=== PATIENT | male | born 1985 | race Caucasian/White ===

== ENCOUNTER 2016-10-09 11:43 | Emergency (ER) | payer OTHER ==
[2016-10-09 12:11] VITALS: BP 157/89
--- NOTE | 2016-10-09 12:31 | UC ---
Throat Pain/Nasal Reynaldo HPI - HPI Summary HPI Summary: pt preesnts with c/o nasal congestion, sinus pressure and pain, PND, Sore throat , X7 days and discharge from right eye that he has noticed is yellow/green discharge from right eye that has worsened over the last 3 days. Woke this morning with right eye "glued" shut - History of Current Complaint Chief Complaint: UCEye Stated Complaint: FEVER HEADACHE CONGESTION Time Seen by Provider: 10/09/16 12:03 Hx Obtained From: Patient Onset/Duration: Gradual Onset, Lasting Days Severity: Mild Associated Signs & Symptoms: Positive: Dysphagia, Sinus Discomfort, Fever - since - Allergies/Home Medications Allergies/Adverse Reactions: Allergies Allergy/AdvReac Type Severity Reaction Status Date / Time No Known Allergies Allergy Verified 10/09/16 12:11 Home Medications: Home Medications Dextromethorphan-Phenylephrine [Sudafed PE Preesure+Pain+ 10-5-325 mg] 2 tab PO PRN 10/09/16 [History] PMH/Surg Hx/FS Hx/Imm Hx Previously Healthy: Yes Cardiovascular History Of: Reports: Hypertension Denies: Pacemaker/ICD - Surgical History Surgical History: None - Family History Known Family History: Positive: Hypertension, Diabetes - Social History Lives: With Family Alcohol Use: None Substance Use Type: None Smoking Status (MU): Never Smoked Tobacco Review of Systems Constitutional: Fever, Fatigue Skin: Negative Eyes: Drainage - yellow/green ENT: Sore Throat, Nasal Discharge Respiratory: Negative Cardiovascular: Negative Gastrointestinal: Negative Genitourinary: Negative Motor: Negative Neurovascular: Negative Musculoskeletal: Negative Neurological: Negative Psychological: Negative All Other Systems Reviewed And Are Negative: Yes Physical Exam Triage Information Reviewed: Yes Appearance: Well-Appearing Vital Signs: Initial Vital Signs Temp 97.3 F 10/09/16 12:07 Pulse 89 10/09/16 12:07 Resp 16 10/09/16 12:07 BP 157/89 10/09/16 12:07 Pulse Ox 95 10/09/16 12:07 Eye Exam: Other Eyes: Positive: Conjunctiva Inflamed, Discharge - green ENT Exam: Other ENT: Positive: Pharyngeal erythema, Nasal congestion, Tonsillar swelling, Other : - maxillary sinus tenderness Neck exam: Normal Respiratory Exam: Normal Cardiovascular Exam: Normal Abdominal Exam: Normal Musculoskeletal Exam: Normal Neurological Exam: Normal Psychological Exam: Normal Skin Exam: Normal Throat Pain/Nasal Course/Dx - Differential Dx/Diagnosis Differential Diagnosis/HQI/PQRI: Influenza, Sinusitis, URI, Other - conjunctivitis Provider Diagnoses: sinusitis. conjunctivitis Discharge - Discharge Plan Condition: Stable Disposition: HOME Prescriptions: Amoxicillin (*) 875 mg PO BID #10 tab Polymyx/Trimethoprim OPTH* [Polytrim OPHTH*] 2 drop BOTH EYES Q3H #1 btl Patient Education Materials: Sinusitis (ED), Conjunctivitis (ED) Referrals: Jenaro Angelo MD [Primary Care Provider] -
== END 2016-10-09 12:28 | disposition home or self-care (01) ==
LOC: UCEAST 11:43
DX: J32.9 Chronic sinusitis, unspecified (principal); H10.31 Unspecified acute conjunctivitis, right eye
CPT/HCPCS: 99212; G0463

== ENCOUNTER 2016-12-12 09:25 | Emergency (ER) | payer MEDICAID, OTHER ==
[2016-12-12 11:16] VITALS: BP 136/84
--- NOTE | 2016-12-12 12:03 | UC ---
FLU HPI - HPI Summary HPI Summary: TWO DAYS OF COUGH FEVER BODY ACHES CHILLS ; SON HAD POSITIVE FLU A WEEK AGO. ALSO RAN OUT OF ACID REFLUX MEDICATION. - History of Current Complaint Chief Complaint: UCRespiratory Stated Complaint: COUGH Time Seen by Provider: 12/12/16 11:11 Hx Obtained From: Patient, Family/Slot Ambassador Onset/Duration: Sudden Onset, Lasting Days, Still Present Severity Currently: Moderate Severity Initially: Moderate Pain Intensity: 0 Pain Scale Used: 0-10 Numeric Associated Signs & Symptoms: Positive: Fever, F/C, Myalgia, Cough, Nasal Congestion Related Hx: Possible Flu/Infectious Exposure - Risk Factors Influenza Risk Factors: Negative - Allergy/Home Medications Allergies/Adverse Reactions: Allergies Allergy/AdvReac Type Severity Reaction Status Date / Time No Known Allergies Allergy Verified 10/09/16 12:11 Home Medications: Home Medications Gabapentin CAP(*) [Neurontin 100 mg CAP(*)] 100 mg PO DAILY 12/12/16 [History Confirmed 12/12/16] PMH/Surg Hx/FS Hx/Imm Hx Previously Healthy: Yes Cardiovascular History Of: Reports: Hypertension Denies: Pacemaker/ICD - Surgical History Surgical History: None - Family History Known Family History: Positive: None, Hypertension, Diabetes - Social History Occupation: Employed Full-time Lives: With Family Alcohol Use: None Substance Use Type: None Smoking Status (MU): Never Smoked Tobacco Review of Systems Constitutional: Fever, Chills, Fatigue Skin: Negative Eyes: Negative ENT: Nasal Discharge Respiratory: Cough Cardiovascular: Negative Gastrointestinal: Negative Genitourinary: Negative Motor: Negative Neurovascular: Negative Musculoskeletal: Myalgia Neurological: Negative Psychological: Negative All Other Systems Reviewed And Are Negative: Yes Physical Exam Triage Information Reviewed: Yes Appearance: Well-Appearing, No Pain Distress, Well-Nourished Vital Signs: Initial Vital Signs Temp 98.4 F 12/12/16 11:11 Pulse 108 12/12/16 11:11 Resp 20 12/12/16 11:11 BP 136/84 12/12/16 11:11 Pulse Ox 96 12/12/16 11:11 Eye Exam: Normal Eyes: Positive: Conjunctiva Clear ENT Exam: Normal ENT: Positive: Normal ENT inspection, Hearing grossly normal, Pharynx normal, TMs normal Dental Exam: Normal Neck exam: Normal Neck: Positive: Supple, Nontender, No Lymphadenopathy Respiratory Exam: Normal Respiratory: Positive: Chest non-tender, Lungs clear, Normal breath sounds, No respiratory distress, No accessory muscle use Cardiovascular Exam: Normal Cardiovascular: Positive: RRR, No Murmur, Pulses Normal Abdominal Exam: Normal Musculoskeletal Exam: Normal Musculoskeletal: Positive: Strength Intact, ROM Intact, No Edema Neurological Exam: Normal Psychological Exam: Normal Psychological: Positive: Normal Response To Family Skin Exam: Normal Flu Course/Dx - Differential Dx/Diagnosis Differential Diagnosis/HQI/PQRI: Influenza Provider Diagnoses: INFLUENZA Discharge - Discharge Plan Condition: Stable Disposition: HOME Prescriptions: Benzonatate CAP* [Tessalon 100 MG CAP*] 100 mg PO TID #15 cap Oseltamivir CAP* [Tamiflu CAP*] 75 mg PO BID #10 cap Pantoprazole TAB (NF) [Protonix TAB (NF)] 40 mg PO DAILY #14 tab Patient Education Materials: Influenza (ED), Gastroesophageal Reflux Disease ( ED) Forms: *Work Release Referrals: Jenaro Angelo MD [Primary Care Provider] -
== END 2016-12-12 11:48 | disposition home or self-care (01) ==
LOC: UCEAST 09:25
DX: J11.1 Influenza due to unidentified influenza virus with other respiratory manifestations (principal); I10 Essential (primary) hypertension
CPT/HCPCS: 87502; 99212; G0463

== ENCOUNTER → 2017-08-03 19:27 | Emergency (ER) | payer OTHER ==
[2017-08-03 19:32] VITALS: BP 127/73
--- NOTE | 2017-08-03 20:16 | UC ---
Ear Complaint HPI - HPI Summary HPI Summary: Patient presents with one day onset ear pain. He states he has not had any change in hearing, canal drainage, or bleeding. He denies fever, chills, runny nose, sore throat, chest pain, dyspnea, abdominal pain, nausea, vomiting or diarrhea. He states if felt like there was water in it after he showered today so he cleaned it with q-tip. - History of Current Complaint Chief Complaint: UCEar Stated Complaint: EAR PAIN Time Seen by Provider: 08/03/17 20:05 Onset/Duration: Sudden Onset Severity Initially: Mild Severity Currently: Moderate Associated Signs/Symptoms: Positive: Trauma to Ear - Allergies/Home Medications Allergies/Adverse Reactions: Allergies Allergy/AdvReac Type Severity Reaction Status Date / Time Ibuprofen Allergy Severe See Comment Verified 08/03/17 19:32 PMH/Surg Hx/FS Hx/Imm Hx Previously Healthy: Yes - Surgical History Surgical History: None - Family History Known Family History: Positive: None, Hypertension, Diabetes - Social History Occupation: Employed Full-time Lives: Alone Alcohol Use: None Substance Use Type: None Smoking Status (MU): Never Smoked Tobacco Review of Systems Constitutional: Negative Skin: Negative Eyes: Negative ENT: Ear Ache Respiratory: Negative Cardiovascular: Negative Gastrointestinal: Negative Genitourinary: Negative Motor: Negative Neurovascular: Negative Musculoskeletal: Negative Neurological: Negative Psychological: Negative All Other Systems Reviewed And Are Negative: Yes Physical Exam Triage Information Reviewed: Yes Vital Signs: Initial Vital Signs Temp 97.2 F 08/03/17 19:29 Pulse 91 08/03/17 19:29 Resp 16 08/03/17 19:29 BP 127/73 08/03/17 19:29 Pulse Ox 99 08/03/17 19:29 Eyes: Positive: Conjunctiva Clear ENT: Positive: Hearing grossly normal, Pharynx normal, TM bulging, TM dull, TM red, Uvula midline Dental Exam: Normal Neck exam: Normal Neck: Positive: 1 Respiratory Exam: Normal Cardiovascular Exam: Normal Abdominal Exam: Normal Musculoskeletal Exam: Normal Skin Exam: Normal Ear Complaint Course/Dx - Course Course Of Treatment: Patient presents with complaints of right ear pain, he has normal vital signs, was afebrile. His physical exam in consistent with otitis media and was RX zpk. I told him that if his symtpoms do not improve in two days to go to his or be seen by ENT. - Differential Dx/Diagnosis Differential Diagnosis/HQI/PQRI: Otitis Media Provider Diagnoses: otitis media Discharge - Discharge Plan Condition: Stable Disposition: HOME Prescriptions: Azithromycin TAB* [Zithromax TAB (Z-AJAY) 250 mg #6 tabs] 250 mg PO DAILY #6 tab Patient Education Materials: Otitis Media (ED) Referrals: Jenaro Angelo MD [Primary Care Provider] - Jean Vazquez MD [Medical Doctor] -
== END | disposition home or self-care (01) ==
LOC: UCEAST 19:27
DX: H66.91 Otitis media, unspecified, right ear (principal)
CPT/HCPCS: 99212; G0463

== ENCOUNTER 2017-08-10 15:59 | Emergency (ER) | payer OTHER ==
[2017-08-10] MEDS ORDERED: Ketorolac INJ* 60 MG/2 ML VIAL IM ONE (16:27)
[2017-08-10] MEDS ORDERED: Cyclobenzaprine TAB* 10 MG PO ONE ×2 (16:27→16:49)
[2017-08-10] MEDS ORDERED: Lidocaine PATCH 5%* 1 PATCH TRANSDERM ONE (16:28)
--- NOTE | 2017-08-10 16:29 | ED ---
Back Pain - HPI Summary HPI Summary: 31m presents with back pain for past week. 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 He has history of herniated disks. He states pain is in sharp location as normal. He is being follow up a pain specialist and was given a toradol shot which helped but after it wore off the pain came back more intense. He denies any loss of bowel or bladder or saddle anaesthesia. He admits to pain occasionally down his leg. He denies any weakness. He denies any fever. He has been using naproxen and Tylenol with codeine for pain. His pain is located in lower back. - History of Current Complaint Chief Complaint: EDBackInjuryPain Stated Complaint: BACK PIAN, Time Seen by Provider: 08/10/17 16:08 Pain Intensity: 10 - Allergies/Home Medications Allergies/Adverse Reactions: Allergies Allergy/AdvReac Type Severity Reaction Status Date / Time Ibuprofen AdvReac Mild See Comment Verified 08/09/17 10:35 PMH/Surg Hx/FS Hx/Imm Hx Endocrine/Hematology History: Denies: Other Endocrine/Hematological Disorders Cardiovascular History: Reports: Hx Hypertension Denies: Hx Pacemaker/ICD, Other Cardiovascular Problems/Disorders Respiratory History: Reports: Hx Sleep Apnea - not using CPAP Denies: Other Respiratory Problems/Disorders GI History: Reports: Hx Gastroesophageal Reflux Disease, Hx Ulcer Denies: Other GI Disorders History: Denies: Other Problems/Disorders Musculoskeletal History: Reports: Hx Arthritis, Hx Back Problems, Other Musculoskeletal History - neck pain Sensory History: Reports: Hx Contacts or Glasses Denies: Hx Hearing Aid, Other Sensory Impairments Opthamlomology History: Reports: Hx Contacts or Glasses Denies: Other Sensory Impairments Neurological History: Reports: Hx Headaches Denies: Other Neuro Impairments/Disorders Psychiatric History: Denies: Hx Panic Disorder, Other Psychiatric Issues/Disorders Infectious Disease History: No Infectious Disease History: Denies: Hx Hepatitis, Hx of Known/Suspected MRSA, History Other Infectious Disease, Traveled Outside the [place] in Last 30 Days - Family History Known Family History: Positive: None, Hypertension, Diabetes - Social History Alcohol Use: None Hx Substance Use: No Substance Use Type: Reports: None Hx Tobacco Use: No Smoking Status (MU): Never Smoked Tobacco Review of Systems Negative: Fever Negative: Chest Pain Negative: Shortness Of Breath Positive: Myalgia - back pain All Other Systems Reviewed And Are Negative: Yes Physical Exam Triage Information Reviewed: Yes Vital Signs On Initial Exam: Initial Vitals Temp Pulse Resp BP Pulse Ox 97.8 F 76 20 162/80 100 08/10/17 16:01 08/10/17 16:01 08/10/17 16:01 08/10/17 16:01 08/10/17 16:01 Vital Signs Reviewed: Yes Appearance: Positive: Well-Appearing Skin: Positive: Warm, Dry Head/Face: Positive: Normal Head/Face Inspection Eyes: Positive: Normal, Conjunctiva Clear Respiratory/Lung Sounds: Positive: Clear to Auscultation, Breath Sounds Present Cardiovascular: Positive: Normal, RRR Musculoskeletal: Positive: Strength/ROM Intact - back with pain, Other - tenderness L4-L5, neg SLR, good pulses Neurological: Positive: Sensory/Motor Intact, Reflexes Intact - patella Psychiatric: Positive: Normal - [place] Coma Scale Coma Scale Total: 15 Diagnostics - Vital Signs Vital Signs Temp Pulse Resp BP Pulse Ox 08/10/17 16:01 97.8 F 76 20 162/80 100 - Laboratory Lab Statement: Any lab studies that have been ordered have been reviewed, and results considered in the medical decision making process. Back Pain Course/Dx - Course Course Of Treatment: 31m presents with back pain for past week. 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 He has history of herniated disks. He states pain is in sharp location as normal. He is being follow up a pain specialist and was given a torodal shot which helped but after it wore off the pain came back more intense. He denies any loss of bowel or bladder or saddle anaesthesia. He admits to pain occasionally down his leg. He denies any weakness. He denies any fever. He has been using naproxen and Tylenol with codeine for pain. His pain is located in lower back. on exam has tenderness lower back. neg SLR. will treat with toradol, flexeril, and lidocaine patch. told to follow up with pain specialist. patient understand and agrees with plan. - Diagnoses Differential Diagnosis/HQI/PQRI: Positive: Herniated Disc, Strain, Sprain Provider Diagnoses: Back pain Discharge - Discharge Plan Condition: Good Disposition: HOME Prescriptions: Cyclobenzaprine TAB* [Flexeril 10 MG TAB*] 10 mg PO TID PRN #15 tab PRN Reason: Pain Lidocaine PATCH 5%* [Lidoderm 5% Patch*] 1 patch TRANSDERM DAILY #7 patch Patient Education Materials: Back Pain (ED) Referrals: Jenaro Angelo MD [Primary Care Provider] - Additional Instructions: Take muscle relaxers three times a day Apply lidocaine patches to area for up to 12 hours in one 24 hour period Use ibuprofen or Tylenol for pain every 6 hours ice/heat area, move as much as possible Follow up with primary within 5 days Return to ED if develop any new or worsening symptoms
[2017-08-10 17:03] VITALS: BP 144/74
== END 2017-08-10 17:01 | disposition home or self-care (01) ==
LOC: ED 15:59
DX: M54.9 Dorsalgia, unspecified (principal)
CPT/HCPCS: 96372; 99282; A9270-GY; J1885

== ENCOUNTER 2017-11-30 12:15 | Emergency (ER) | payer OTHER ==
--- NOTE | 2017-11-30 13:42 | RAD ---
Indication: Cough. 2 views of the chest including dual energy PA views are reviewed. Comparison is made with previous exam dated October 07, 2015. No mediastinal shift is noted. Heart is of normal size and configuration. Lung alvares demonstrate no pleural fluid, pneumonia or pneumothorax. There is poor inspiratory effort noted. IMPRESSION: No active cardiopulmonary disease is noted.
[2017-11-30] MEDS ORDERED: methylPREDNISolone 125 MG* 2 ML VIAL IV ONE (15:46)
[2017-11-30] MEDS ORDERED: Albuterol/Ipratropium NEB.SOL* Albuterol 2.5 MG/Ipratropium 0.5 MG 3 ML INH ONE (15:46)
[2017-11-30 15:50] LABS: ABS Basophils 0.1 10^3/ul (0-0.2); ABS Eosinophils 0.2 10^3/ul (0-0.6); ABS Lymphocytes 2.5 10^3/ul (1.0-4.8); ABS Neutrophils 5.5 10^3/ul (1.5-7.7); ABS Nucleated RBC 0 10^3/ul; Eosinophil % 2.5 % (0-6); Hematocrit 46 % (42-52); Hemoglobin 16.1 g/dl (14.0-18.0); Lymphocyte % 27.2 % (25-47); Mean Corpuscular HGB Conc 35 g/dl (31-36); Mean Corpuscular Hemoglobin 30 pg (27-31); Mean Corpuscular Volume 85 fL (80-94); Mean Platelet Volume 7 um3 (7.4-10.4); Nucleated Red Blood Cells % 0; Platelet Count 312 10^3/ul (150-450); Red Blood Count 5.41 10^6/ul (4.0-5.4); Red Cell Distribution Width 13 % (10.5-15); White Blood Count 9.2 10^3/ul (3.5-10.8)
[2017-11-30 16:09] LABS: EGFR Non-African American 91.4 (>60)
--- NOTE | 2017-11-30 17:02 | ED ---
HPI Chest Pain - HPI Summary HPI Summary: 32-year-old male presents with chest pain for the past couple days. He states he has been having a cough and shortness of breath. He states he has had this before when he has had a cold. He is nonsmoker. He is not diabetic. He does have a history of high blood pressure. He does not know his family history. Denies any pain or swelling in his calf muscle. He states that the chest pain feels like a pressure. He states this pain is constant. He said coughing makes it worse. He denies any nausea, vomiting or diarrhea. He denies any bowel pain. Denies a sore throat. He has no respiratory history. He doesn't know his family history. Nothing makes it better. Has tried only Tylenol. - History of Current Complaint Chief Complaint: EDChestPainROMI Time Seen by Provider: 11/30/17 15:27 Pain Intensity: 8 - Allergy/Home Medications Allergies/Adverse Reactions: Allergies Allergy/AdvReac Type Severity Reaction Status Date / Time ibuprofen AdvReac See Comment Verified 11/24/17 13:53 Home Medications: Home Medications Naproxen TAB* [Naprosyn 375 mg TAB*] 500 mg PO BID 11/30/17 [History Confirmed 11/30/17] Simvastatin TAB(NF) [Zocor(NF)] 5 mg PO DAILY 11/30/17 [History Confirmed ] PMH/Surg Hx/FS Hx/Imm Hx Endocrine/Hematology History: Denies: Hx Anticoagulant Therapy, Other Endocrine/Hematological Disorders Cardiovascular History: Reports: Hx Hypertension Denies: Hx Pacemaker/ICD, Other Cardiovascular Problems/Disorders Respiratory History: Reports: Hx Sleep Apnea - not using CPAP Denies: Hx Asthma, Hx Chronic Obstructive Pulmonary Disease (COPD), Other Respiratory Problems/Disorders GI History: Reports: Hx Gastroesophageal Reflux Disease, Hx Ulcer Denies: Other GI Disorders History: Denies: Other Problems/Disorders Musculoskeletal History: Reports: Hx Arthritis, Hx Back Problems, Other Musculoskeletal History - neck pain Sensory History: Reports: Hx Contacts or Glasses Denies: Hx Hearing Aid, Other Sensory Impairments Opthamlomology History: Reports: Hx Contacts or Glasses Denies: Other Sensory Impairments Neurological History: Reports: Hx Headaches Denies: Other Neuro Impairments/Disorders Psychiatric History: Denies: Hx Panic Disorder, Other Psychiatric Issues/Disorders Infectious Disease History: No Infectious Disease History: Denies: Hx Hepatitis, Hx of Known/Suspected MRSA, History Other Infectious Disease, Traveled Outside the [place] in Last 30 Days - Family History Known Family History: Positive: None, Hypertension, Diabetes - Social History Alcohol Use: None Hx Substance Use: No Substance Use Type: Reports: None Hx Tobacco Use: No Smoking Status (MU): Never Smoked Tobacco Review of Systems Negative: Fever Positive: Chest Pain Positive: Shortness Of Breath, Cough Negative: Abdominal Pain All Other Systems Reviewed And Are Negative: Yes Physical Exam Triage Information Reviewed: Yes Vital Signs On Initial Exam: Initial Vitals Temp Pulse Resp BP Pulse Ox 97.8 F 85 20 140/81 96 11/30/17 12:28 11/30/17 12:28 11/30/17 12:28 11/30/17 12:28 11/30/17 12:28 Vital Signs Reviewed: Yes Appearance: Positive: Well-Appearing Skin: Positive: Warm, Dry Head/Face: Positive: Normal Head/Face Inspection Eyes: Positive: Normal, EOMI, JUANJO, Conjunctiva Clear ENT: Positive: Normal ENT inspection, Pharynx normal, TMs normal Respiratory/Lung Sounds: Positive: Clear to Auscultation, Breath Sounds Present , Other - Nonreproducible chest pain Cardiovascular: Positive: Normal, RRR Abdomen Description: Positive: Nontender, Soft Bowel Sounds: Positive: Present Musculoskeletal: Positive: Normal Neurological: Positive: Normal Psychiatric: Positive: Normal Diagnostics - Vital Signs Vital Signs Temp Pulse Resp BP Pulse Ox 11/30/17 16:30 76 20 109/57 95 11/30/17 16:00 70 20 126/74 97 11/30/17 15:59 74 12 99 11/30/17 15:43 73 21 137/74 98 11/30/17 15:30 67 97 11/30/17 14:39 99.1 F 77 14 105/72 96 11/30/17 12:28 97.8 F 85 20 140/81 96 - Laboratory Lab Results: Lab Results 11/30/17 11/30/17 11/30/17 Range/Units 15:41 15:41 15:41 WBC 9.2 (3.5-10.8) 10^3/ul RBC 5.41 H (4.0-5.4) 10^6/ul Hgb 16.1 (14.0-18.0) g/dl Hct 46 (42-52) % MCV 85 (80-94) fL MCH 30 (27-31) pg MCHC 35 (31-36) g/dl RDW 13 (10.5-15) % Plt Count 312 (150-450) 10^3/ul MPV 7 L (7.4-10.4) um3 Neut % (Auto) 59.1 (38-83) % Lymph % (Auto) 27.2 (25-47) % [place] % (Auto) 10.6 H (0-7) % Eos % (Auto) 2.5 (0-6) % Baso % (Auto) 0.6 (0-2) % Absolute Neuts (auto) 5.5 (1.5-7.7) 10^3/ul Absolute Lymphs (auto) 2.5 (1.0-4.8) 10^3/ul Absolute Monos (auto) 1.0 H (0-0.8) 10^3/ul Absolute Eos (auto) 0.2 (0-0.6) 10^3/ul Absolute Basos (auto) 0.1 (0-0.2) 10^3/ul Absolute Nucleated RBC 0 10^3/ul Nucleated RBC % 0 D-Dimer, Quantitative < 200 (Less Than 230) ng/mL Sodium 137 (133-145) mmol/L Potassium 3.8 (3.5-5.0) mmol/L Chloride 104 (101-111) mmol/L Carbon Dioxide 27 (22-32) mmol/L Anion Gap 6 (2-11) mmol/L BUN 13 (6-24) mg/dL Creatinine 0.96 (0.67-1.17) mg/dL Est GFR ( Amer) 117.5 (>60) Est GFR (Non-Af Amer) 91.4 (>60) BUN/Creatinine Ratio 13.5 (8-20) Glucose 85 (70-100) mg/dL Calcium 9.6 (8.6-10.3) mg/dL Total Bilirubin 0.50 (0.2-1.0) mg/dL AST 21 (13-39) U/L ALT 24 (7-52) U/L Alkaline Phosphatase 42 (34-104) U/L Troponin I 0.00 (<0.04) ng/mL C-React Prot High Sens 5.28 mg/L Total Protein 7.4 (6.4-8.9) g/dL Albumin 4.4 (3.2-5.2) g/dL Globulin 3.0 (2-4) g/dL Albumin/Globulin Ratio 1.5 (1-3) Result Diagrams: 11/30/17 15:41 11/30/17 15:41 Lab Statement: Any lab studies that have been ordered have been reviewed, and results considered in the medical decision making process. - Radiology chest Xray Interpretation: No Acute Changes Radiology Interpretation Completed By: Radiologist - EKG No standard instances Cardiac Rate: NL EKG Rhythm: Sinus Rhythm EKG Interpretation: normal sinus rhythm Re-Evaluation - Re-Evaluation First Eval Change: Unchanged Comment: tried inhaler and pain unchanged Chest Pain Course/Dx - Course Course Of Treatment: 32-year-old male presents with chest pain for the past couple days. He states he has been having a cough and shortness of breath. He states he has had this before when he has had a cold. He is nonsmoker. He is not diabetic. He does have a history of high blood pressure. He does not know his family history. Denies any pain or swelling in his calf muscle. He states that the chest pain feels like a pressure. He states this pain is constant. He said coughing makes it worse. He denies any nausea, vomiting or diarrhea. He denies any bowel pain. Denies a sore throat. He has no respiratory history. He doesn't know his family history. Nothing makes it better. Has tried only Tylenol. On exam nonreproducible chest pain. Lungs clear to auscultation. Heart regular rate and rhythm. EKG normal. Labs within normal limits. 3. Troponins normal. Chest x-ray normal.Likely bronchitis. Will treat with cough medication inhaler and steroid. Told to follow with primary. Patient understands and agrees the plan. - Chest Pain Differential Diagnosis/HQI/PQRI: Acute VA, Chest Wall, Lower Respiratory Infection, Pulmonary Embolism - Diagnoses Provider Diagnoses: Bronchitis, Chest pain Discharge - Discharge Plan Condition: Good Disposition: HOME Patient Education Materials: Acute Bronchitis (ED) Forms: *Work Release Referrals: Jenaro Angelo MD [Primary Care Provider] - Additional Instructions: Follow up with primary within 3 days Take cough medication 5ml (1 teaspoon) every 6 hours as needed cough Use inhaler up to two puffs every 4-6 hours for cough Take steroid once a day starting tomorrow Use saline in the nose for nasal congestion, can also get Sudafed at pharmacy counter for nasal congestion Use humidifier or place warm bowls of water around the room for cough Take Tylenol or ibuprofen for pain every 6 hours Return to ED if develop any new or worsening symptoms
[2017-11-30] MEDS ORDERED: guaiFENesin/CODIEN 100MG-10MG* 5 ML UDC PO ONE (17:37)
[2017-11-30 19:53] VITALS: BP 125/58
== END 2017-11-30 19:53 | disposition home or self-care (01) ==
LOC: ED 12:15
DX: J40 Bronchitis, not specified as acute or chronic (principal); R07.9 Chest pain, unspecified; R06.02 Shortness of breath; R05 Cough
CPT/HCPCS: 36415; 71046; 80053; 84484; 85025; 85379; 86141; 93005; 94640; 96374; 99283; A9270-GY; J2930

== ENCOUNTER 2018-08-07 08:33 | Emergency (ER) | payer OTHER ==
[2018-08-07 08:41] VITALS: BP 136/83
--- NOTE | 2018-08-07 08:58 | UC ---
Respiratory Complaint HPI - HPI Summary HPI Summary: ABOUT ONE WEEK OF SINUS AND NASAL CONGESTION AND HEADACHE. VERY MILD COUGH. NO FEVER, NO NASAL DISCHARGE, NO NAUSEA/VOMITING. NO SORE THROAT OR EAR PAIN. OTC SUDAFED NOT HELPING. - History of Current Complaint Chief Complaint: UCGeneralIllness Stated Complaint: CONGESTION Time Seen by Provider: 08/07/18 08:43 Hx Obtained From: Patient Onset/Duration: Gradual Onset, Lasting Days, Still Present Timing: Constant Severity Initially: Moderate Severity Currently: Moderate Pain Intensity: 5 Pain Scale Used: 0-10 Numeric Character: Cough: Nonproductive Aggravating Factors: Nothing Alleviating Factors: Nothing Associated Signs And Symptoms: Positive: Sinus Discomfort. Negative: Dyspnea, Fever, Wheezing - Allergies/Home Medications Allergies/Adverse Reactions: Allergies Allergy/AdvReac Type Severity Reaction Status Date / Time ibuprofen AdvReac See Comment Verified 08/07/18 08:41 PMH/Surg Hx/FS Hx/Imm Hx Cardiovascular History: Hypertension Other History Of: Negative For: Anticoagulant Therapy - Surgical History Surgical History: None Surgery Procedure, Year, and Place: GERD - Family History Known Family History: Positive: Hypertension, Diabetes - Social History Alcohol Use: None Substance Use Type: None Smoking Status (MU): Never Smoked Tobacco Review of Systems All Other Systems Reviewed And Are Negative: Yes Constitutional: Negative: Fever ENT: Positive: Sinus Congestion Respiratory: Positive: Cough Cardiovascular: Positive: Negative Gastrointestinal: Positive: Negative Neurological: Positive: Headache Physical Exam Triage Information Reviewed: Yes Appearance: Well-Appearing, No Pain Distress, Well-Nourished Vital Signs: Initial Vital Signs Temp 98.2 F 08/07/18 08:37 Pulse 84 08/07/18 08:37 Resp 18 08/07/18 08:37 BP 136/83 08/07/18 08:37 Pulse Ox 96 08/07/18 08:37 Vital Signs Reviewed: Yes Eyes: Positive: Conjunctiva Clear ENT: Positive: Hearing grossly normal, Pharynx normal, Nasal congestion, TMs normal. Negative: Nasal drainage Neck: Positive: Supple, Nontender, No Lymphadenopathy Respiratory Exam: Normal Cardiovascular Exam: Normal Abdomen Description: Positive: Soft Musculoskeletal: Positive: No Edema Neurological: Positive: Alert Psychological: Positive: Age Appropriate Behavior Skin: Negative: Rashes UC Diagnostic Evaluation - Laboratory O2 Sat by Pulse Oximetry: 96 Respiratory Course/Dx - Differential Dx/Diagnosis Provider Diagnoses: SINUSITIS Discharge - Sign-Out/Discharge Documenting (check all that apply): Patient Departure All imaging exams completed and their final reports reviewed: No Studies - Discharge Plan Condition: Stable Disposition: HOME Patient Education Materials: Sinusitis (ED) Forms: *Work Release Referrals: Jenaro Angelo MD [Primary Care Provider] - If Needed Additional Instructions: YOUR SYMPTOMS ARE LIKELY VIRALLY MEDIATED AND SHOULD RESOLVE ON THEIR OWN WITH TIME. NO INDICATION FOR ANTIBIOTICS AT PRESENT. REST, HYDRATE, OTC MEDS NEEDED. SEEK FOLLOW-UP IF YOU ARE NOT IMPROVING OVER THE NEXT 1-2 WEEKS. USE OTC AFRIN FOR NASAL CONGESTION. 2 SPRAYS IN EACH NOSTRIL TWICE DAILY NEEDED. DO NOT USE FOR MORE THAN 3-4 DAYS IN A ROW TO PREVENT DEVELOPING REBOUND CONGESTION. CALL ME HERE ON MONDAY OR MONDAY 2:30PM-10PM IF YOU HAVE ANY CONCERNS. - Billing Disposition and Condition Condition: STABLE Disposition: Home
== END 2018-08-07 09:15 | disposition home or self-care (01) ==
LOC: UCEAST 08:33
DX: J32.9 Chronic sinusitis, unspecified (principal); I10 Essential (primary) hypertension; Z88.6 Allergy status to analgesic agent
CPT/HCPCS: 99211; G0463

== ENCOUNTER 2018-11-27 17:19 | Emergency (ER) | payer OTHER ==
[2018-11-27 17:43] VITALS: BP 134/100
--- NOTE | 2018-11-27 18:06 | UC ---
Back Pain HPI - HPI Summary HPI Summary: 33 yo male presents with neck and back pain. He tells me that this morning he was walking into work in the parking lot and slipped on the ice. Fell and landed on his left side. Did not hit his head or have LOC. He continued in to work and worked all day. Gradually throughout the day developed neck and low back pain. He has not taken anything OTC for his pain. Denies SOB, weakness, numbness, or tingling. No saddle anesthesia or loss of bowel/bladder control. - History of Current Complaint Chief Complaint: UCBackPain Stated Complaint: ARM AND BACK INJURY FROM A FALL Time Seen by Provider: 11/27/18 18:06 Hx Obtained From: Patient Onset/Duration: Sudden Onset Severity Initially: Moderate Severity Currently: Severe Pain Intensity: 9 Pain Scale Used: 0-10 Numeric - Allergies/Home Medications Allergies/Adverse Reactions: Allergies Allergy/AdvReac Type Severity Reaction Status Date / Time ibuprofen AdvReac See Comment Verified 11/27/18 17:43 PMH/Surg Hx/FS Hx/Imm Hx Cardiovascular History: Hypertension Other History Of: Negative For: Anticoagulant Therapy - Surgical History Surgical History: None Surgery Procedure, Year, and Place: GERD - Family History Known Family History: Positive: Hypertension, Diabetes - Social History Alcohol Use: None Substance Use Type: None Smoking Status (MU): Never Smoked Tobacco Review of Systems All Other Systems Reviewed And Are Negative: Yes Constitutional: Positive: Negative Skin: Positive: Negative Respiratory: Positive: Negative Cardiovascular: Positive: Negative Neurovascular: Positive: Negative Musculoskeletal: Positive: Other: - Neck and low back pain Neurological: Positive: Negative Psychological: Positive: Negative Physical Exam - Summary Physical Exam Summary: GENERAL: NAD. WDWN. No pain distress. SKIN: No rashes, sores, lesions, or open wounds. NECK: Supple. FROM. Nontender. No lymphadenopathy. CHEST: CTAB. No r/r/w. No accessory muscle use. Breathing comfortably and in no distress. CV: RRR. Without m/r/g. Pulses intact. Cap refill <2seconds MSK: C-Spine: Mild TTP about cervical paraspinal muscles and trapezius. FROM. Negative Spurlings. L-Spine: TTP over lumbar paraspinal muscles. Pain with flexion and extension of spine. Positive SLR b/l for low back pain without radiation. Strength 5/5 B/L LEs including dorsiflexion and plantar flexion. FROM B/L LEs. No edema. NEURO: Alert. Sensations intact B/L UEs C4-T1 and LEs L3-S1. Reflexes intact PSYCH: Age appropriate behavior. Triage Information Reviewed: Yes Vital Signs: Initial Vital Signs Temp 98.7 F 11/27/18 17:40 Pulse 94 11/27/18 17:40 Resp 16 11/27/18 17:40 BP 134/100 11/27/18 17:40 Pulse Ox 98 11/27/18 17:40 Vital Signs Reviewed: Yes Back Pain Course/Dx - Course Course Of Treatment: Cervical spine and lumbar spine: No radiologist reading after 1800, therefore wet read by myself is negative for fracture. Suspect muscle strain from fall. Advised to rest and apply heat. Continue naproxen and will rx for flexeril. F/u with PCP if symptoms do not improve. - Differential Dx/Diagnosis Provider Diagnosis: Muscle strain, Fall Discharge - Sign-Out/Discharge Documenting (check all that apply): Patient Departure All imaging exams completed and their final reports reviewed: No - Discharge Plan Condition: Stable Disposition: HOME Prescriptions: Cyclobenzaprine TAB* [Flexeril 10 MG TAB*] 10 mg PO BID PRN #14 tab PRN Reason: Pain Patient Education Materials: Muscle Strain (DC) Referrals: Jenaro Angelo MD [Primary Care Provider] - Additional Instructions: If you develop a fever, shortness of breath, chest pain, new or worsening symptoms - please call your PCP or go to the ED. Your blood pressure was high at todays visit. Please see your primary provider within 4 weeks for recheck and re-evaluation. 1) Rest and apply heat to your back and areas of pain 2) Continue taking your naproxen for discomfort 3) If your symptoms do not improve in 7-10 days - please be rechecked by your Primary doctor - Billing Disposition and Condition Condition: STABLE Disposition: Home
--- NOTE | 2018-11-28 07:58 | UC ---
- EKG/XRAY/CT XRAY: Lumbosacral spine & cervical spine xray - 1. Negative findings 2. cervical lordosis Course/Dx - Diagnoses Provider Diagnoses: Muscle strain, Fall Discharge - Sign-Out/Discharge Documenting (check all that apply): Post-Discharge Follow Up All imaging exams completed and their final reports reviewed: Yes - Discharge Plan Condition: Stable Disposition: HOME Prescriptions: Cyclobenzaprine TAB* [Flexeril 10 MG TAB*] 10 mg PO BID PRN #14 tab PRN Reason: Pain Patient Education Materials: Muscle Strain (DC) Referrals: Jenaro Angelo MD [Primary Care Provider] - Additional Instructions: If you develop a fever, shortness of breath, chest pain, new or worsening symptoms - please call your PCP or go to the ED. Your blood pressure was high at todays visit. Please see your primary provider within 4 weeks for recheck and re-evaluation. 1) Rest and apply heat to your back and areas of pain 2) Continue taking your naproxen for discomfort 3) If your symptoms do not improve in 7-10 days - please be rechecked by your Primary doctor - Billing Disposition and Condition Condition: STABLE Disposition: Home
== END 2018-11-27 18:43 | disposition home or self-care (01) ==
LOC: UCEAST 17:19
DX: S39.012A Strain of muscle, fascia and tendon of lower back, initial encounter (principal); X58.XXXA Exposure to other specified factors, initial encounter; Y92.9 Unspecified place or not applicable; M40.50 Lordosis, unspecified, site unspecified
CPT/HCPCS: 72050; 72110; 99212; G0463

== ENCOUNTER 2019-02-14 17:56 | Emergency (ER) | payer OTHER ==
--- OUTSIDE RECORDS SUMMARY | 2019-02-14 18:01 | XMS REPORT | Continuity of Care Document ---
:1985 External Reference #:[id number] Author Name Karey Frederick Care Team Providers Name Role Phone Jenaro Angelo MD Primary Care Physician Unavailable Payers Date Identification Numbers Payment Provider Subscriber Policy Number: [id number] [employer] Amadou Lu PayID: [id number] [address] [address] [place] [address] Advance Directives Description No Information Available Problems Active Problems Provider Date Obstructive sleep apnea syndrome Stacie Ryan MD Onset: 08/17/2015 Obesity Stacie Ryan MD Onset: 08/17/2015 Precordial pain Thuan Kiran M.D., [facility] [place] Onset: 10/28/2015 Essential hypertension Thuan Kiran M.D., [facility] [place] Onset: 10/28/2015 Family History Date Family Member(s) Observation Comments General Diabetes General Hypertension Father Hypertension Father Diabetes Type II borderline Mother Kidney Disease Mother Mother has had back pain Social History Type Date Description Comments Sex Unknown Lives With Family 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/23/19 - History GS Tobacco Use Start: Unknown Never Smoked Cigarettes Smoking Status Reviewed: 01/23/19 Never Smoked Cigarettes ETOH Use Denies alcohol use Tobacco Use Start: Unknown Patient has never smoked Recreational Drug Use Denies Drug Use Exercise Type/Frequency Does not exercise Allergies, Adverse Reactions, Alerts Description No Known Drug Allergies Medications Active Medications SIG Qnty Indications Ordering Provider Date Naprosyn twice daily with Unknown 08/04/2015 500mg Tablets food as needed Lisinopril-Hydrochloroth 1 by mouth every Unknown iazide day 10-12.5mg Tablets Cyclobenzaprine HCL one by mouth Unknown 10mg three times a Tablets day as needed spasm Simvastatin 1 tab every day Unknown 5mg Tablets by mouth at bedtime History Medications Tramadol HCL take one 14tabs Jean Haynes, 05/05/2017 - 50mg capsule/tablet by M.D. 07/05/2017 Tablets mouth twice daily as needed for pain Gabapentin take 1 capsule by 45capchao R79.82 Jean Haynes, 09/27/2016 - 100mg mouth at night for 1 M.DKiya 05/05/2017 Capsules week then 1 by mouth twice daily ongoing (taking one daily) Multivitamin 1 by mouth every day Unknown - Gummies Adult 09/27/2016 Chewtabs Fish Oil daily Unknown - 09/27/2016 Acetaminophen-Codei 1-2 tab by mouth 3x a Unknown - ne #3 day as needed Unknown 300-30mg Tablets Immunizations Description No Information Available Vital Signs Date Vital Result Comment 01/23/2019 8:35am Height 69 inches 5'9" Weight 260.00 lb Heart Rate 68 /min BP Systolic 132 mmHg BP Diastolic 82 mmHg Respiratory Rate 16 /min Body Temperature 97.9 F BMI (Body Mass Index) 38.4 kg/m2 07/05/2017 3:49pm Height 69 inches 5'9" Weight 261.50 lb Heart Rate 68 /min BP Systolic Sitting 110 mmHg BP Diastolic Sitting 76 mmHg Respiratory Rate 14 /min Pain Level 5 BMI (Body Mass Index) 38.6 kg/m2 05/05/2017 10:48am Height 69 inches 5'9" Weight 256.00 lb Heart Rate 68 /min BP Systolic Sitting 110 mmHg BP Diastolic Sitting 80 mmHg Respiratory Rate 14 /min Pain Level 7 BMI (Body Mass Index) 37.8 kg/m2 10/20/2016 2:27pm Height 69 inches 5'9" Weight 256.38 lb Heart Rate 78 /min BP Systolic Sitting 108 mmHg BP Diastolic Sitting 90 mmHg Body Temperature 98.2 F BMI (Body Mass Index) 37.9 kg/m2 10/20/2016 2:18pm Height 69 inches 5'9" Weight 256.38 lb Heart Rate 78 /min BP Systolic Sitting 108 mmHg BP Diastolic Sitting 90 mmHg Body Temperature 98.2 F O2 % BldC Oximetry 97 % BMI (Body Mass Index) 37.9 kg/m2 09/27/2016 12:43pm Height 69 inches 5'9" Weight 259.00 lb Heart Rate 84 /min BP Systolic Sitting 120 mmHg BP Diastolic Sitting 78 mmHg Body Temperature 98.7 F Pain Level 5 BMI (Body Mass Index) 38.2 kg/m2 11/10/2015 2:06pm Height 69 inches 5'9" Weight 251.00 lb Heart Rate 90 /min BP Systolic 132 mmHg BP Diastolic 88 mmHg Respiratory Rate 16 /min O2 % BldC Oximetry 98 % BMI (Body Mass Index) 37.1 kg/m2 10/28/2015 2:23pm Height 69 inches 5'9" Weight 251.00 lb Heart Rate 64 /min 68 BP Systolic 140 mmHg right arm, reg cuff BP Diastolic 90 mmHg right arm, reg cuff BP Systolic Sitting 140 mmHg left arm, reg cuff BP Diastolic Sitting 92 mmHg left arm, reg cuff BP Systolic Standing 136 mmHg left arm, reg cuff BP Diastolic Standing 86 mmHg left arm, reg cuff BMI (Body Mass Index) 37.1 kg/m2 08/17/2015 2:10pm Height 69 inches 5'9" Weight 253.00 lb Heart Rate 95 /min BP Systolic 114 mmHg BP Diastolic 78 mmHg Respiratory Rate 78 /min Body Temperature 78.0 F O2 % BldC Oximetry 98 % BMI (Body Mass Index) 37.4 kg/m2 Results Test Date Facility Test Result H/L Range Note Laboratory test 10/10/2016 [facility] C Reactive 9.49 mg/L High < 5.[address] [place] [address] [phone] Creatine Kinase(CK) 62 U/L N 10-223 Hla B27 10/10/2016 [facility] Hla B27 Negative [place] [address] [place] [address] [phone] Hla B27 Interp See Comment N 3 Laboratory test 10/10/2016 [facility] Cyclic Citrullinated < 15.6 U N [address] [place] [place] [address] [phone] Lyme Disease Serology Negative N Negative 5 Angiotensin Converting Enzyme 6 U/L Abnormal 8 - 53 6 Anca AB Ser If 10/10/2016 [facility] C-Anca Negative N Negative [address] [place] [address] [phone] P-Anca Negative N Negative 7 1 Acute inflammation: >10.00 2 REFERENCE VALUE Not Applicable 3 RESULT: HLA-B27 antigen was not detected. ADDITIONAL INFORMATION Method: Flow Cytometry Performing Laboratory CLIA# [id number] Test Performed by: [place] [address] Agricultural Appraiser: Bryant Walton II, M.D., Ph.D. 4 REFERENCE VALUE <20.0 (Negative) Test Performed by: [place] [address] Agricultural Appraiser: Bryant Walton II, M.D., Ph.D. 5 Serologic response to B. burgdorferi infection is not detected, but cannot rule out early infection during which low or undetectable antibody levels to B. burgdorferi may be present. If clinically indicated, a new serum specimen should be submitted in 7-14 days. Test Performed by: [place] [address] Agricultural Appraiser: Bryant Walton II, M.D., Ph.D. 6 Test Performed by: [place] [address] Agricultural Appraiser: Bryant Walton II, M.D., Ph.D. 7 Negative for cANCA and pANCA patterns by immunofluorescence. ADDITIONAL INFORMATION This test was developed and its performance characteristics determined by [facility] in a manner consistent with CLIA requirements. This test has not been cleared or approved by the U.S. Food and Drug Administration. Test Performed by: [address] [address] Agricultural Appraiser: Bryant Walton II, M.D., Ph.D. 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 C-reactive protein (CRP) M54.5 Low back pain M54.6 Pain in thoracic spine Office Visit 09/27/2016 1:00p Rheumatology Jean R79.82 Elevated Services Of Stephie Haynes M.D. 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 780.59 Sleep Disturb[facility] Dorina Vazquez Other 786.09 Dyspnea & Respiratory Abnormalities Other 780.79 Malaise And Fatigue Other Plan of Treatment 01/23/2019 - Yasmani Aaron M.D.K64.1 Second degree hemorrhoidsFollow up:As needed
[2019-02-14 18:15] VITALS: BP 132/85
--- NOTE | 2019-02-14 20:05 | UC ---
Complaint Male HPI - HPI Summary HPI Summary: 33-year-old male presents with complaints of left testicular pain. States he had a sudden onset of severe sharp pain approximately one week ago that lasted approximately 30 minutes. States he continued to have mild to moderate discomfort for 2 more days and then the pain almost completely resolved. 2 days ago the sharp pains returned and have been progressively worsening. Presently rates the pain as a 6 out of 10. Nonradiating. Patient reports he was accidentally kicked by his the day prior to the onset of pain when they were wrestling but had no pain immediately after the injury and then a couple days ago he was hit in the testicle with a pool noodle. He notes some urinary frequency. He has no concerns for STI as he is in a monogamous relationship with his spouse. Denies fever, chills, abdominal pain, back or flank pain, nausea, vomiting, testicular or scrotal swelling, dysuria, urgency, hematuria, penile drainage or lesions. - History of Current Complaint Chief Complaint: UCGU Stated Complaint: GROIN PAIN Time Seen by Provider: 02/14/19 18:25 Hx Obtained From: Patient Pain Intensity: 6 - Allergies/Home Medications Allergies/Adverse Reactions: Allergies Allergy/AdvReac Type Severity Reaction Status Date / Time ibuprofen AdvReac See Comment Verified 02/14/19 18:15 Home Medications: Home Medications Acetaminophen with Codeine [Acetaminophen/Codeine 300-15 mg] 1 tab PO BEDTIME PRN 02/14/19 [History Confirmed 02/14/19] PMH/Surg Hx/FS Hx/Imm Hx Cardiovascular History: Hypertension Other History Of: Negative For: Anticoagulant Therapy - Surgical History Surgical History: None Surgery Procedure, Year, and Place: GERD - Family History Known Family History: Positive: Hypertension, Diabetes - Social History Occupation: Employed Full-time Lives: With Family Alcohol Use: None Substance Use Type: None Smoking Status (MU): Never Smoked Tobacco Review of Systems All Other Systems Reviewed And Are Negative: Yes Constitutional: Negative: Fever, Chills Skin: Negative: Rash Respiratory: Positive: Negative Cardiovascular: Positive: Negative Gastrointestinal: Negative: Abdominal Pain, Vomiting, Diarrhea, Nausea Genitourinary: Positive: Frequency, Other - Testicular pain. Negative: Dysuria , Hematuria, Urgency, Vaginal/Penile Burning, Vaginal/Penile Discharge, Ulceration/Lesion Musculoskeletal: Positive: Negative Neurological: Positive: Negative Is Patient Immunocompromised?: No Physical Exam - Summary Physical Exam Summary: GENERAL APPEARANCE: Well developed, well nourished, alert and cooperative, and appears to be in no acute distress. CARDIAC: Normal S1 and S2. No S3, S4 or murmurs. Rhythm is regular. There is no peripheral edema, cyanosis or pallor. Extremities are warm and well perfused. Capillary refill is less than 2 seconds. Peripheral pulses intact. LUNGS: Clear to auscultation without rales, rhonchi, wheezing or diminished breath sounds. ABDOMEN: Positive bowel sounds. Soft, nondistended, nontender. No guarding or rebound. No masses or hepatosplenomegally. No CVA tenderness. GENITOURINARY: Circumcised penis. Normal meatus without discharge. No penile lesions noted. No scrotal swelling. Mild tenderness behind the left testicle along the vas deferens. Testicles smooth and nontender without nodules or masses. MUSKULOSKELETAL: ROM intact to all extremities. No joint erythema or tenderness. Normal muscular development. Normal gait. SKIN: Skin normal color, texture and turgor with no lesions or eruptions. Triage Information Reviewed: Yes Vital Signs: Initial Vital Signs Temp 98.5 F 02/14/19 18:10 Pulse 79 02/14/19 18:10 Resp 18 02/14/19 18:10 BP 132/85 02/14/19 18:10 Pulse Ox 98 02/14/19 18:10 Vital Signs Reviewed: Yes Diagnostics - Radiology No standard instances Radiology Interpretation Completed By: Radiologist Summary of Radiographic Findings: EXAM: US Scrotum. EXAM DATE/TIME: 2018 7:05 PM. CLINICAL HISTORY: 33 years old, male; Scrotum pain; Additional info: Left testicular pain. TECHNIQUE: Imaging protocol: Real-time ultrasound of the scrotum and contents with color. Doppler and image documentation. COMPARISON: No relevant prior studies available. FINDINGS: Right Testicle: The right testicle measures 4.3 x 2.3 x 2.9 cm, with. homogeneous echotexture and normal vascular flow. No torsion. Left Testicle: The left testicle measures 3.6 x 1.9 x 2.7 cm, with homogeneous echotexture and normal vascular flow. No torsion. Epididymides: The right epididymal head measures 1.1 x 1.0 cm , with normal vascular flow. The left epididymis measures 0.8 x 1.4 cm, with normal vascular flow. Scrotum: Small left varicocele. IMPRESSION: Left varicocele. Complaint Male Course/Dx - Course Course Of Treatment: 33-year-old male presents with complaints of left testicular pain. States he had a sudden onset of severe sharp pain approximately one week ago that lasted approximately 30 minutes. States he continued to have mild to moderate discomfort for 2 more days and then the pain almost completely resolved. 2 days ago the sharp pains returned and have been progressively worsening. Presently rates the pain as a 6 out of 10. Nonradiating. Patient reports he was accidentally kicked by his the day prior to the onset of pain when they were wrestling but had no pain immediately after the injury and then a couple days ago he was hit in the testicle with a pool noodle. He notes some urinary frequency. He has no concerns for STI as he is in a monogamous relationship with his spouse. Denies fever, chills, abdominal pain, back or flank pain, nausea, vomiting, testicular or scrotal swelling, dysuria, urgency, hematuria, penile drainage or lesions. Afebrile. Vital signs stable. Patient had some mild tenderness behind the left testicle along the vas deferens and otherwise exam was unremarkable. Cdomw-ip-ijwn urinalysis was negative. Testicular ultrasound showed a left varicocele. Discussed findings with the patient. Recommending conservative treatment including scrotal support and over -the-counter NSAIDs. He is to follow-up with his primary care provider in 3-5 days for further evaluation. Anticipatory guidance and warning symptoms were reviewed with the patient. Verbalizes understanding and agrees with plan of care. - Differential Dx/Diagnosis Differential Diagnosis/HQI/PQRI: Epididymitis, Prostatitis, Testicular Torsion, Ureteral Calculi, Urinary Tract Infection Provider Diagnosis: Left varicocele Discharge - Sign-Out/Discharge Documenting (check all that apply): Patient Departure All imaging exams completed and their final reports reviewed: Yes - Discharge Plan Condition: Stable Disposition: HOME Patient Education Materials: Varicocele (ED) Referrals: Jenaro Angelo MD [Primary Care Provider] - 3 Days (Call tomorrow for an appointment.) Additional Instructions: The urine test in the clinic today showed no evidence of infection. The testicular ultrasound showed a left varicocele which is can cause pain but is not an emergent problem. Wear an athletic supporter to help provide additional support to the scrotum and testicles. Use over the counter ibuprofen (Advil, Motrin) or naproxen (Aleve) according to directions as needed for pain. Follow up with your primary care provider in 3-5 days for follow up of your symptoms. Call tomorrow morning for an appointment. Seek immediate medical attention in the emergency room if you develop fever greater than 100.5 F, have worsening pain, swelling of the testicle(s) or scrotum, you have difficulty or are unable to urinate, or have any worsening of symptoms. - Billing Disposition and Condition Condition: STABLE Disposition: Home
== END 2019-02-14 20:10 | disposition home or self-care (01) ==
LOC: UCEAST 17:56
DX: I86.1 Scrotal varices (principal); I10 Essential (primary) hypertension; Z88.8 Allergy status to other drugs, medicaments and biological substances
CPT/HCPCS: 76870; 81003; 99211; G0463

== ENCOUNTER 2019-03-18 18:45 | Emergency (ER) | payer OTHER ==
--- NOTE | 2019-03-18 19:32 | UC ---
Headache HPI - HPI Summary HPI Summary: 33-year-old male comes in with a chief complaint of a headache for 2 weeks. Headache started fairly suddenly 2 weeks ago while at work. Is an 8 out of 10. It's mostly parietal. He does have photophobia with it. Does not have a history of migraines. He's had a stomach ulcer and is does not take ibuprofen. He has taken acetaminophen without relief. He has not been woken up by the headache. When he wakes up in the morning sometimes the headache is there and sometimes it is not. Usually does not there in the morning and the headache gets worse as the day goes on. 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 Denies any vision change other than the photophobia denies any difficulty with speech or any focal neurologic deficit. No difficulties with walking. - History Of Current Complaint Chief Complaint: UCGeneralIllness Stated Complaint: HEADACHE Time Seen by Provider: 03/18/19 19:15 Pain Intensity: 8 - Allergies/Home Medications Allergies/Adverse Reactions: Allergies Allergy/AdvReac Type Severity Reaction Status Date / Time ibuprofen AdvReac See Comment Verified 02/14/19 18:15 PMH/Surg Hx/FS Hx/Imm Hx Previously Healthy: Yes Cardiovascular History: Hypertension Other History Of: Negative For: Anticoagulant Therapy - Surgical History Surgical History: None Surgery Procedure, Year, and Place: GERD - Family History Known Family History: Positive: Hypertension, Diabetes - Social History Alcohol Use: None Substance Use Type: None Smoking Status (MU): Never Smoked Tobacco Review of Systems All Other Systems Reviewed And Are Negative: Yes Constitutional: Positive: Negative Skin: Positive: Negative Eyes: Positive: Photophobia ENT: Positive: Negative Respiratory: Positive: Negative Cardiovascular: Positive: Negative Gastrointestinal: Positive: Negative Motor: Positive: Negative Neurovascular: Positive: Negative Musculoskeletal: Positive: Negative Neurological: Positive: Headache Psychological: Positive: Negative Is Patient Immunocompromised?: No Physical Exam Triage Information Reviewed: Yes Appearance: Well-Appearing, No Pain Distress, Well-Nourished Vital Signs: Initial Vital Signs Temp 98.4 F 03/18/19 18:51 Pulse 84 03/18/19 18:51 Resp 16 03/18/19 18:51 BP 125/78 03/18/19 18:51 Pulse Ox 96 03/18/19 18:51 Vital Signs Reviewed: Yes Eyes: Positive: Conjunctiva Clear, Other: - PERRLA/EOMI, POSITIVE MILD PHOTOPHOBIA. Negative: Discharge ENT: Negative: Nasal congestion Neck: Positive: Supple Respiratory: Positive: Lungs clear, Normal breath sounds, No respiratory distress Cardiovascular: Positive: RRR Musculoskeletal Exam: Normal Musculoskeletal: Positive: Strength Intact, ROM Intact Neurological Exam: Normal Neurological: Positive: Alert, Muscle Tone Normal, Other: - NO FOCAL NEUROLOGIC DEFICIT Psychological Exam: Normal Psychological: Positive: Normal Response To Family, Age Appropriate Behavior Skin Exam: Normal Headache Course/Dx - Course Course Of Treatment: EXAM: CT Head Without Contrast EXAM DATE/TIME: 03/18/2019 7:36 PM CLINICAL HISTORY: 33 years old, male; Pain; Migraine; Without aura; Does not respond to medication; With migrainosus (>72 hrs & severe); Patient HX: Frontal headache for 2 weeks with snesitivity to light and sound. No other symptoms. ; Additional info: CONWAY x 2 weeks, 8/10 pain, sudden onset TECHNIQUE: Imaging protocol: Axial computed tomography images of the head without contrast. Radiation optimization: All CT scans at this facility use at least one of these dose optimization techniques: automated exposure control; mA and/or kV adjustment per patient size (includes targeted exams where dose is matched to clinical indication); or iterative reconstruction. COMPARISON: No relevant prior studies available. FINDINGS: Brain: Normal. No hemorrhage. Unremarkable white matter. No mass effect. Ventricles: Normal. No ventriculomegaly. Bones/joints: Unremarkable. No acute fracture. Sinuses: Visualized sinuses are unremarkable. No fluid levels. Mastoid air cells: Visualized mastoid air cells are well aerated. No mastoid effusion. Soft tissues: Unremarkable. IMPRESSION: No acute intracranial pathology. 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 ([facility]) Report Date: 03/18/2019 19:27:00 Report Status: Final Begin of Report Content Patient Name: HIRAM DOUGLAS Medical Record#: [id number] Ordering Physician: Bryant Garcia MD Acct.#: [id number] : 1985 Age: 33 Sex: M Location: [facility] Exam Date: 03/18/191926 ADM Status: REG ER Order Information: CT BRAIN WO Accession Number: [id number] CPT: 03330 EXAM: CT Head Without Contrast EXAM DATE/TIME: 03/18/2019 7:36 PM CLINICAL HISTORY: 33 years old, male; Pain; Migraine; Without aura; Does not respond to medication; With migrainosus (>72 hrs severe); Patient HX: Frontal headache for 2 weeks with snesitivity to light and sound. No other symptoms. ; Additional info: CONWAY x 2 weeks, 8/10 pain, sudden onset TECHNIQUE: Imaging protocol: Axial computed tomography images of the head without contrast. Radiation optimization: All CT scans at this facility use at least one of these dose optimization techniques: automated exposure control; mA and/or kV adjustment per patient size (includes targeted exams where dose is matched to clinical indication); or iterative reconstruction. COMPARISON: No relevant prior studies available. FINDINGS: Brain: Normal. No hemorrhage. Unremarkable white matter. No mass effect. Ventricles: Normal. No ventriculomegaly. Bones/joints: Unremarkable. No acute fracture. Sinuses: Visualized sinuses are unremarkable. No fluid levels. Mastoid air cells: Visualized mastoid air cells are well aerated. No mastoid effusion. Soft tissues: Unremarkable. IMPRESSION: No acute intracranial pathology. To contact [facility] with a general question: [facility] - [phone] For direct physician to physician contact: Physician Hotline - [phone] [facility] ([facility] Facility ID #[id number]) <Electronically signed by Say Cortez MD in OV> 03/18/192035 I discussed the CT report with the patient. We discussed the signs and symptoms of of cerebral hemorrhage. Patient reports his headache came on quickly but he would not describe it as the worst headache of his life. Denies any neck pain or back pain other than his chronic back pain. No signs of infection no fevers no chills no sinusitis rhinorrhea. We discussed going to the emergency department now for further evaluation to potentially include evaluation of CSF for hemorrhagic stroke as a cause of the headache. At this time I believe a cerebral hemorrhage is low probability. At this time the patient prefers to not go the emergency department. In clinic the patient was given Toradol 60 mg IM and acetaminophen 975 mg by mouth. Plan for this evening is to rest dark quiet room. He has a regularly scheduled visit with his primary care doctor on April 08, 2019. I also told him that if his any further problems with headaches then a follow-up with neurology is also appropriate. We talked if he did not improve or if he worsened he should go to the emergency department for further evaluation and care. - Differential Dx/Diagnosis Provider Diagnosis: Headache Discharge - Sign-Out/Discharge Documenting (check all that apply): Patient Departure All imaging exams completed and their final reports reviewed: Yes - Discharge Plan Condition: Stable Disposition: HOME Patient Education Materials: Acute Headache (ED) Referrals: Jenaro Angelo MD [Primary Care Provider] - Artie Castro MD [Medical Doctor] - Additional Instructions: FOLLOW UP WITH YOUR DOCTOR ON 04/08/19 SCHEDULED. FOLLOW UP WITH NEUROLOGY, DR CASTRO, IF NOT COMPLETELY IMPROVED GO TO THE EMERGENCY DEPARTMENT IF YOUR CONDITION DOES NOT IMPROVE OR WORSENS; PAIN, WEAKNESS, NUMBNESS, VOMITING, DIFFICULTY WITH VISION OR SPEECH, YOU FEEL ILL OR ANY QUESTIONS OR CONCERNS. - Billing Disposition and Condition Condition: STABLE Disposition: Home
[2019-03-18] MEDS ORDERED: Acetaminophen TAB* 325 MG PO ONE (20:46)
[2019-03-18] MEDS ORDERED: Ketorolac INJ* 60 MG/2 ML VIAL IM ONE (20:46)
[2019-03-18 20:51] VITALS: BP 130/78
== END 2019-03-18 21:05 | disposition home or self-care (01) ==
LOC: UCEAST 18:45
DX: R51 Headache (principal); H53.143 Visual discomfort, bilateral; I10 Essential (primary) hypertension; K25.9 Gastric ulcer, unspecified as acute or chronic, without hemorrhage or perforation; Z88.8 Allergy status to other drugs, medicaments and biological substances
CPT/HCPCS: 70450; 96372; 99211; A9270-GY; G0463; J1885

== ENCOUNTER 2019-07-03 21:25 | Emergency (ER) | payer OTHER ==
[2019-07-03 21:39] VITALS: BP 128/89
[2019-07-03] MEDS ORDERED: DOXYcycline CAP(*) 100 MG PO ONE ×2 (21:45→21:46)
--- NOTE | 2019-07-03 21:45 | UC ---
Throat Pain/Nasal Reynaldo HPI - HPI Summary HPI Summary: 33-year-old male comes in with upper respiratory tract infection symptoms for one week. Patient said rhinorrhea and also has chest congestion and sputum. Is also had some minimal sore throat. Had chills recently no measured fevers. Denies any wheezing. No history of asthma. - History of Current Complaint Chief Complaint: UCRespiratory Stated Complaint: COLD SYMPTOMS Time Seen by Provider: 07/03/19 21:36 Pain Intensity: 4 - Allergies/Home Medications Allergies/Adverse Reactions: Allergies Allergy/AdvReac Type Severity Reaction Status Date / Time ibuprofen AdvReac See Comment Verified 07/03/19 21:40 PMH/Surg Hx/FS Hx/Imm Hx Previously Healthy: Yes Cardiovascular History: Hypertension Other History Of: Negative For: Anticoagulant Therapy - Surgical History Surgical History: Yes Surgery Procedure, Year, and Place: vasectomy 2018 - Family History Known Family History: Positive: Hypertension, Diabetes - Social History Alcohol Use: None Substance Use Type: None Smoking Status (MU): Never Smoked Tobacco Review of Systems All Other Systems Reviewed And Are Negative: Yes Constitutional: Positive: Other - SEE HPI Skin: Positive: Negative Eyes: Positive: Negative ENT: Positive: Sore Throat, Nasal Discharge, Sinus Congestion Respiratory: Positive: Shortness Of Breath, Cough, Other - SEE HPI Cardiovascular: Positive: Negative Gastrointestinal: Positive: Negative Motor: Positive: Negative Neurovascular: Positive: Negative Musculoskeletal: Positive: Negative Neurological: Positive: Negative Psychological: Positive: Negative Is Patient Immunocompromised?: No Physical Exam Triage Information Reviewed: Yes Appearance: No Pain Distress, Well-Nourished, Ill-Appearing - MILD Vital Signs: Initial Vital Signs Temp 98.3 F 07/03/19 21:36 Pulse 91 07/03/19 21:36 Resp 16 07/03/19 21:36 BP 128/89 07/03/19 21:36 Pulse Ox 97 07/03/19 21:36 Vital Signs Reviewed: Yes Eye Exam: Normal Eyes: Positive: Conjunctiva Clear ENT: Positive: Pharyngeal erythema, Nasal congestion, Nasal drainage, TMs normal Neck: Positive: Supple Respiratory: Positive: Lungs clear, Normal breath sounds, No respiratory distress Cardiovascular: Positive: RRR Musculoskeletal: Positive: Strength Intact, ROM Intact Neurological: Positive: Alert, Muscle Tone Normal Psychological: Positive: Age Appropriate Behavior Skin Exam: Normal Throat Pain/Nasal Course/Dx - Course Course Of Treatment: DISCUSSED VIRAL VERSES BACTERIAL INFECTIONS AND THE ROLE OF ANTIBIOTICS. THE PATIENT PREFERS TO BE ON ANTIBIOTICS AT THIS TIME. - Differential Dx/Diagnosis Provider Diagnosis: Upper respiratory infection Discharge ED - Sign-Out/Discharge Documenting (check all that apply): Patient Departure All imaging exams completed and their final reports reviewed: No Studies - Discharge Plan Condition: Stable Disposition: HOME Prescriptions: DOXYcycline CAP(*) [DOXYcycline 100MG CAP(*)] 100 mg PO BID #18 cap Patient Education Materials: Upper Respiratory Infection (ED) Forms: *Work Release Referrals: Jenaro Angelo MD [Primary Care Provider] - Additional Instructions: FOLLOW UP WITH YOUR DOCTOR IF NOT COMPLETELY IMPROVED. GET RECHECKED SOONER IF YOUR CONDITION WORSENS OR ANY QUESTIONS OR CONCERNS. - Billing Disposition and Condition Condition: STABLE Disposition: Home
== END 2019-07-03 21:55 | disposition home or self-care (01) ==
LOC: UCEAST 21:25
DX: J06.9 Acute upper respiratory infection, unspecified (principal); I10 Essential (primary) hypertension; Z88.8 Allergy status to other drugs, medicaments and biological substances
CPT/HCPCS: 99211; A9270-GY; G0463

== ENCOUNTER 2019-09-08 10:37 | Emergency (ER) | payer OTHER ==
[2019-09-08 11:05] VITALS: BP 139/90
--- NOTE | 2019-09-08 11:21 | UC ---
Abdominal Pain Male HPI - HPI Summary HPI Summary: 33 yo man with a history of hiatal hernia and past ulceration who awoke yesterday morning with pain in the epigastrium without radiation, and an acid taste in his mouth which made him think that he had swallowed emesis. The night prior he had eaten hot pockets, cookies and chili fritos for dinner. Takes naproxen twice daily for back pain. Does not drink alcohol. Reports reflux which he approaches with diet, does use occasional pepto bismol. Took pepto yesterday without relief. Last evening, tried eating carrots and crackers which he vomitied and he has not eaten since due to persistent nausea. Hx of hypertension and elevated cholesterol. Passed normal stool today. - History of Current Complaint Chief Complaint: UCChestPain Stated Complaint: STOMACHE PAIN Time Seen by Provider: 09/08/19 10:54 Hx Obtained From: Patient Onset/Duration: Sudden Onset, Lasting Days - 1-1 Timing: Constant Severity Initially: Moderate Severity Currently: Moderate Pain Intensity: 8 Radiates: No Character: Colicy Aggravating Factor(s): Food Alleviating Factor(s): Rest Associated Signs And Symptoms: Negative: Diaphoresis, Fever, Back Pain, Constipation - Allergies/Home Medications Allergies/Adverse Reactions: Allergies Allergy/AdvReac Type Severity Reaction Status Date / Time ibuprofen AdvReac See Comment Verified 09/08/19 10:58 Home Medications: Home Medications Bismuth Subsalicylate [Pepto-Bismol] 2 tab PO ONCE PRN 09/08/19 [History Confirmed 09/08/19] Naproxen [EC-Naproxen] 1 tab PO BID 09/08/19 [History Confirmed 09/08/19] Simvastatin 1 tab PO DAILY 09/08/19 [History Confirmed 09/08/19] PMH/Surg Hx/FS Hx/Imm Hx - Additional Past Medical History Additional PMH: 33 yo man with a history of past ulceration and hiatal hernia who awoke yesterday morning with epigastric pain and nausea and an acid taste in his mouth which made him feel that he had swallowed emesis in the night. Endocrine History: Dyslipidemia Cardiovascular History: Hypertension GI/ History: Gastroesophageal Reflux, Other - hiatal hernia Other History Of: Negative For: Anticoagulant Therapy - Surgical History Surgical History: Yes Surgery Procedure, Year, and Place: vasectomy 2019 - Family History Known Family History: Positive: Hypertension, Diabetes - Social History Occupation: Employed Full-time Lives: With Family Alcohol Use: None Substance Use Type: None Smoking Status (MU): Never Smoked Tobacco Review of Systems All Other Systems Reviewed And Are Negative: Yes Constitutional: Positive: Fatigue Skin: Positive: Negative Eyes: Positive: Negative ENT: Positive: Negative Respiratory: Positive: Shortness Of Breath - feels tightness related to epigastric pain Cardiovascular: Positive: Chest Pain Gastrointestinal: Positive: Abdominal Pain, Vomiting, Nausea. Negative: Diarrhea Genitourinary: Positive: Negative Motor: Positive: Negative Neurovascular: Positive: Negative Musculoskeletal: Positive: Negative Neurological: Positive: Negative Psychological: Positive: Negative Is Patient Immunocompromised?: No Physical Exam Triage Information Reviewed: Yes Appearance: Pain Distress - mild, Obese Vital Signs: Initial Vital Signs Temp 98.8 F 09/08/19 10:55 Pulse 90 09/08/19 10:55 Resp 18 09/08/19 10:55 BP 139/90 09/08/19 10:55 Pulse Ox 96 09/08/19 10:55 Eye Exam: Normal ENT: Positive: Pharynx normal Neck: Positive: Supple, Nontender, No Lymphadenopathy Respiratory: Positive: Lungs clear, Normal breath sounds Cardiovascular: Positive: RRR, No Murmur Abdominal Exam: Other - tenderness in the epigastric area without guarding or rebound Abdomen Description: Positive: Soft. Negative: Distended, Guarding, Hepatomegaly, Peritoneal Signs Musculoskeletal Exam: Normal Neurological Exam: Normal Neurological: Positive: Alert Psychological Exam: Normal Skin Exam: Normal Diagnostics - EKG Cardiac Rate: NL Cardiac Rhythm: Sinus: Normal Ectopy: PVCs - 1 ST Segment: Normal Re-Evaluation - Re-Evaluation First Eval Re-Evaluation Time: 11:45 Change: Improved - Pain decreased from 8 to 4 post use of GI cocktail Abd Pain Male Course/Dx - Course Course Of Treatment: Discussed likely issue is hiatal hernia or ulceration, but needs to follow up with Dr. Angelo. - Differential Dx/Clinical Impression Differential Diagnosis/HQI/PQRI: Gall Bladder Disease, Pancreatitis, Peptic Ulcer Disease, Other - hiatal hernia, gastritis Provider Diagnosis: Gastritis Discharge ED - Sign-Out/Discharge Documenting (check all that apply): Patient Departure All imaging exams completed and their final reports reviewed: No Studies - Discharge Plan Condition: Stable Disposition: HOME Prescriptions: Omeprazole 40 mg PO DAILY #14 capsule. Patient Education Materials: Gastritis (ED) Referrals: Jenaro Angelo MD [Primary Care Provider] - Additional Instructions: Your symptoms suggest an acid related problem which could be related to your hiatal hernia or could be new onset ulcer, or possibly gall bladder disease. Pleae take omeprazole once daily, taking it on an empty stomach 20 to 30 minutes before eating. You can use additional antacids such as TUMS. Avoid caffeine, fatty and fried foods, large meals. Follow up with Dr. Angelo in 1 to 2 weeks. IF YOUR PAIN INCREASES, PLEASE GO TO THE EMERGENCY ROOM FOR FURTHER EVALUATION. - Billing Disposition and Condition Condition: STABLE Disposition: Home
[2019-09-08] MEDS ORDERED: Lidocaine 2% VISCOUS* 15 ML UDC PO ONE (11:23)
[2019-09-08] MEDS ORDERED: Al Hydrox/Mg Hydrox/Simet LIQ* 30 ML UDC PO ONE (11:26)
== END 2019-09-08 12:04 | disposition home or self-care (01) ==
LOC: UCEAST 10:37
DX: K29.70 Gastritis, unspecified, without bleeding (principal); I10 Essential (primary) hypertension; E78.5 Hyperlipidemia, unspecified; R07.9 Chest pain, unspecified; R06.02 Shortness of breath; Z88.6 Allergy status to analgesic agent; Z79.899 Other long term (current) drug therapy
CPT/HCPCS: 93005; 99212; A9270-GY; G0463

== ENCOUNTER 2019-10-07 18:35 | Emergency (ER) | payer OTHER ==
[2019-10-07 18:57] VITALS: BP 125/78
--- NOTE | 2019-10-07 19:07 | UC ---
Skin Complaint HPI - HPI Summary HPI Summary: 33 y/o male presents to the urgent care c/o Tailbone x 2 days. Denies injury. Hx of herinated L4-L5. Patient does not feel like its related to herianted disc. Says it feels diffierent - History of Current Complaint Chief Complaint: UCGeneralIllness Time Seen by Provider: 10/07/19 19:04 Stated Complaint: TAILBONE AREA PAIN Pain Intensity: 7 - Allergy/Home Medications Allergies/Adverse Reactions: Allergies Allergy/AdvReac Type Severity Reaction Status Date / Time ibuprofen AdvReac See Comment Verified 09/08/19 10:58 PMH/Surg Hx/FS Hx/Imm Hx Other History Of: Negative For: Anticoagulant Therapy - Surgical History Surgical History: Yes Surgery Procedure, Year, and Place: vasectomy 2018 - Family History Known Family History: Positive: Hypertension, Diabetes - Social History Alcohol Use: None Substance Use Type: None Smoking Status (MU): Never Smoked Tobacco Physical Exam Vital Signs: Initial Vital Signs Temp 99.3 F 10/07/19 18:49 Pulse 86 10/07/19 18:49 Resp 16 10/07/19 18:49 BP 125/78 10/07/19 18:49 Pulse Ox 97 10/07/19 18:49 Discharge ED - Discharge Plan Referrals: Jenaro Angelo MD [Primary Care Provider] -
--- NOTE | 2019-10-07 19:51 | UC ---
Back Pain HPI - HPI Summary HPI Summary: 33 y/o male presents to the urgent care c/o lower back pain near the tailbone since yesterday. Pt reports Hx herniated disc L4-L5 for the past 2 years. 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 He PCP has referred him for Physical therapy which he finished a few months ago. He was advised to decrease weight and he has also been on pain management and seen a Chiropractor. Pain is 7/10 specially going up the stairs w/o any radiation. Pt took Naproxen PO this morning to alleviate symptoms. Pt denies fever, rash or painful cyst around tailbone, testicular or penile pain, saddle anesthesia, urinary or fecal incontinence, numbness or tingling sensation over the lower extremities, urinary symptoms, flank pain, abdominal pain, N/V/D, dizziness, SOB, chest pain, CONWAY. - History of Current Complaint Chief Complaint: UCGeneralIllness Stated Complaint: TAILBONE AREA PAIN Time Seen by Provider: 10/07/19 19:04 Hx Obtained From: Patient Onset/Duration: Gradual Onset, Lasting Days - 1 day, Still Present, Worse Since - today Timing: Intermittent, Lasting Seconds Severity Initially: Mild Severity Currently: Moderate Pain Intensity: 7 Pain Scale Used: 0-10 Numeric Back Pain: Is Discrete @ - lower back at the level of L4-L5 Character: Sharp - going up stairs, Spasmodic Aggravating Factor(s): Movement, Bending Alleviating Factor(s): Rest, OTC Meds - Naproxen PO Associated Signs And Symptoms: Positive: Negative. Negative: Swelling, Redness , Bruising, Fever, Weakness, Flank Pain, Bladder Incontinence, Bowel Incontinence, Pain with Weight Bearing Related History: Similar Episode Dx As - Herniated disc at the level of L4-L5 - Risk Factors AAA Risk Factors: Negative TAD Risk Factors: Negative Cauda Equina Risk Factors: Negative Epidural Abscess Risk Factors: Negative - Allergies/Home Medications Allergies/Adverse Reactions: Allergies Allergy/AdvReac Type Severity Reaction Status Date / Time ibuprofen AdvReac See Comment Verified 09/08/19 10:58 PMH/Surg Hx/FS Hx/Imm Hx Previously Healthy: Yes Endocrine History: Dyslipidemia Cardiovascular History: Hypertension Other Neurological History: Herniated disc Other History Of: Negative For: Anticoagulant Therapy - Surgical History Surgical History: Yes Surgery Procedure, Year, and Place: vasectomy 2019 - Family History Known Family History: Positive: Hypertension, Diabetes - Social History Occupation: Employed Full-time Lives: With Family Alcohol Use: None Substance Use Type: None Smoking Status (MU): Never Smoked Tobacco Review of Systems All Other Systems Reviewed And Are Negative: Yes Constitutional: Positive: Negative Skin: Positive: Negative Eyes: Positive: Negative ENT: Positive: Negative Respiratory: Positive: Negative Cardiovascular: Positive: Negative Gastrointestinal: Positive: Negative Genitourinary: Positive: Negative Motor: Positive: Negative Neurovascular: Positive: Negative Musculoskeletal: Positive: Decreased ROM - lower back, Other: - lower back Neurological: Positive: Negative Psychological: Positive: Negative Is Patient Immunocompromised?: No Physical Exam - Summary Physical Exam Summary: Vital Signs Reviewed: Yes Appearance: Well-Appearing, Well-Nourished, obese male sitting in the examining table w/o any apparent distress. Eyes: Positive: Conjunctiva Clear - PERRLA, EOMI. ENT: Positive: Normal ENT inspection, Hearing grossly normal, Pharynx normal, TMs normal, Uvula midline Neck: Positive: Supple, Nontender, No Lymphadenopathy Respiratory: Positive: Chest non-tender, Lungs clear, Normal breath sounds, No respiratory distress Cardiovascular: Positive: RRR, No Murmur, Pulses Normal, Brisk Capillary Refill Abdomen Description: Positive: Nontender, No Organomegaly, Soft. Negative: CVA Tenderness (R), CVA Tenderness (L) Bowel Sounds: Positive: Present Musculoskeletal: Positive: Strength Intact, BACK: Patient walked into the urgent care room with symmetric ambulation, No signs of limping, antalgic, able to bear weight. No signs of trauma, No masses palpated. Point tenderness at the level of L5-S1, paraspinal muscle tenderness w/ muscle spasm at the same levle, No CVAT, no flank ecchymosis . No sacroiliac notch tenderness, No saddle anesthesia.ROM: limited due to pain, Straight Leg Raise: negative. Patellar reflexes: brisk, symmetric Muscle strength lower extremities. Dorsiflexion/ plantar flexion of ankles. Heel/ toe walk. Lower extremities: Femoral, popliteal , posterior tibial, and dorsalis pedis pulses WNL. Pt refuse rectal exam Neurological: Positive: Alert, Muscle Tone Normal Psychological Exam: Normal Skin Exam: Normal Triage Information Reviewed: Yes Vital Signs: Initial Vital Signs Temp 99.3 F 10/07/19 18:49 Pulse 86 10/07/19 18:49 Resp 16 10/07/19 18:49 BP 125/78 10/07/19 18:49 Pulse Ox 97 10/07/19 18:49 Back Pain Course/Dx - Course Course Of Treatment: 33 y/o male presents to the urgent care c/o lower back pain near the tailbone since yesterday. Pt reports Hx herniated disc L4-L5 for the past 2 years. 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 He PCP has referred him for Physical therapy which he finished a few months ago. He was advised to decrease weight and he has also been on pain management and seen a Chiropractor. Pain is 7/10 specially going up the stairs w/o any radiation. Pt took Naproxen PO this morning to alleviate symptoms. Pt denies fever, rash or painful cyst around tailbone, testicular or penile pain, saddle anesthesia, urinary or fecal incontinence, numbness or tingling sensation over the lower extremities, urinary symptoms, flank pain, abdominal pain, N/V/D, dizziness, SOB, chest pain, CONWAY. Hx obtained. Pt w/ Point tenderness at the level of L5-S1, positive B/L paraspinal muscle tenderness and spasm at the same level. No CVAT, no flank ecchymosis on examination. I reviewed Pt's Lumbosacral X-ray ordered in 2018 and was negative. However Pt has been in pain management w/ DR Oro. Pt advised to continue w/ Naproxen PO, and Rx flexeril PO and Medrol Dose ajay as directed below. Patient was instructed to wear a back support and to f/u wit Spinal Nurse Navigator for further evaluation on his Herniated disc or radiculopathy. Patient is able to ambulate freely w/o aid or limp. Plan of care was discussed with the patient and patient understands and agrees. All questions were answered at patient satisfaction. Pt left clinic hemodynamically stable and ambulating. . - Differential Dx/Diagnosis Differential Diagnosis/HQI/PQRI: Arthritis, Compressive Cord Syndrome, Fracture , Herniated Disc, Renal Colic, Strain, Sprain Provider Diagnosis: Lower back pain, Muscle spasm Discharge ED - Sign-Out/Discharge Documenting (check all that apply): Patient Departure - D/C home All imaging exams completed and their final reports reviewed: No Studies - Discharge Plan Condition: Stable Disposition: HOME Prescriptions: Cyclobenzaprine TAB* [Flexeril 10 MG TAB*] 10 mg PO TID PRN #21 tab PRN Reason: Spasms - Back methylPREDNISolone [Medrol Dosepak 4 MG*] 4 mg PO .SEE AJAY INSTRUCTION #1 ajay Patient Education Materials: Low Back Strain (ED) Referrals: Jenaro Angelo MD [Primary Care Provider] - 3 Days Shannan Eli Ae, RN [Registered Nurse] - 2 Days Additional Instructions: 1- Please continue taking Naproxen PO as directed after meals for pain. Medrol dose ajay as directed to alleviate symptoms 2- Take Flexeril PO as directed for muscle spasm. Please do not drive while taking the medication. 3- Avoid strenuous exercise or heavy lifting. Please wear a back support 4- Please call Spinal Nurse Navigator: Lizeth Eli: [phone] for further management of your herniated discs. Or f/u w/ your PCP for further management. - Billing Disposition and Condition Condition: STABLE Disposition: Home - Attestation Statements Provider Attestation: This patient was not seen by me. I was available for consult. Chart reviewed. JAMES
== END 2019-10-07 20:10 | disposition home or self-care (01) ==
LOC: UCEAST 18:35
DX: M54.5 Low back pain (principal); M62.830 Muscle spasm of back; I10 Essential (primary) hypertension; Z88.8 Allergy status to other drugs, medicaments and biological substances
CPT/HCPCS: 99212; G0463

== ENCOUNTER 2019-11-17 18:08 | Emergency (ER) | payer OTHER ==
[2019-11-17 18:18] VITALS: BP 117/74
[2019-11-17] MEDS ORDERED: Ketorolac *IM* INJ* 60 MG/2 ML VIAL IM ONE (18:34)
--- NOTE | 2019-12-14 11:06 | UC ---
Back Pain HPI - HPI Summary HPI Summary: Worsening back pain--has chronic back pain and believes he has 2 know "injured discs" states it hurts worse to bend down or sit down - History of Current Complaint Chief Complaint: UCBackPain Stated Complaint: LOWER BACK PAIN Time Seen by Provider: 11/17/19 19:00 Hx Obtained From: Patient Onset/Duration: Lasting Days - 2, Still Present, Worse Since Timing: Constant Pain Intensity: 3 Pain Scale Used: 0-10 Numeric Back Pain: Is Discrete @ - low back Character: Aching, Throbbing Aggravating Factor(s): Bending, Other - Sitting Alleviating Factor(s): Nothing Associated Signs And Symptoms: Positive: Negative Related History: Previous Back Injury - Allergies/Home Medications Allergies/Adverse Reactions: Allergies Allergy/AdvReac Type Severity Reaction Status Date / Time ibuprofen AdvReac See Comment Verified 11/18/19 19:19 Home Medications: Home Medications Lisinopril/HCTZ 10/12.5(NF) [Zestoretic 10/12.5(NF)] 1 tab PO DAILY 08/01/16 [ History Confirmed 11/18/19] Naproxen [EC-Naproxen] 1 tab PO BID 09/08/19 [History Confirmed 11/18/19] Simvastatin 1 tab PO DAILY 09/08/19 [History Confirmed 11/18/19] Cyclobenzaprine TAB* [Flexeril 10 MG TAB*] 10 mg PO TID PRN #15 tab 11/17/19 [Rx ] Hydrocodone/Acetaminophen [Hydrocodone-Acetamin 5-325 mg] 1 each PO Q6HR PRN # 12 tablet MDD 4 11/18/19 [Rx] predniSONE 50 mg TAB [Deltasone 50 mg TAB] 50 mg PO DAILY #4 tab 11/18/19 [Rx] PMH/Surg Hx/FS Hx/Imm Hx Previously Healthy: No Endocrine History: Dyslipidemia Cardiovascular History: Hypertension Other History Of: Negative For: Anticoagulant Therapy - Surgical History Surgical History: Yes Surgery Procedure, Year, and Place: vasectomy 2018 - Family History Known Family History: Positive: Hypertension, Diabetes - Social History Occupation: Employed Full-time Lives: With Family Alcohol Use: None Substance Use Type: None Smoking Status (MU): Never Smoked Tobacco Review of Systems All Other Systems Reviewed And Are Negative: Yes Constitutional: Positive: Negative Skin: Positive: Negative Eyes: Positive: Negative ENT: Positive: Negative Respiratory: Positive: Negative Cardiovascular: Positive: Negative Gastrointestinal: Positive: Negative Genitourinary: Positive: Negative Motor: Positive: Negative Neurovascular: Positive: Negative Musculoskeletal: Positive: Arthralgia - low back pain Neurological/Mental Status: Positive: Negative Psychological: Positive: Negative Is Patient Immunocompromised?: No Physical Exam Triage Information Reviewed: Yes Appearance: Well-Appearing, No Pain Distress, Well-Nourished Vital Signs: Initial Vital Signs Temp 99.3 F 11/17/19 18:12 Pulse 93 11/17/19 18:12 Resp 18 11/17/19 18:12 BP 117/74 11/17/19 18:12 Pulse Ox 97 11/17/19 18:12 Vital Signs Reviewed: Yes Eye Exam: Normal Eyes: Positive: Conjunctiva Clear ENT Exam: Normal ENT: Positive: Normal ENT inspection, Hearing grossly normal. Negative: Trismus , Muffled voice, Hoarse voice Dental Exam: Normal Neck exam: Normal Neck: Positive: Supple, Nontender Respiratory Exam: Normal Respiratory: Positive: Chest non-tender, No respiratory distress, No accessory muscle use Cardiovascular Exam: Normal Cardiovascular: Positive: RRR, Pulses Normal, Brisk Capillary Refill Musculoskeletal Exam: Normal Musculoskeletal: Positive: Strength Intact, ROM Intact, No Edema Neurological Exam: Normal Neurological: Positive: Alert, Muscle Tone Normal Psychological Exam: Normal Skin Exam: Normal Back Pain Course/Dx - Course Course Of Treatment: Good relief with Toradol Will rx flexeril and patient will follow with pcp - Differential Dx/Diagnosis Provider Diagnosis: Low back pain Discharge ED - Sign-Out/Discharge Documenting (check all that apply): Patient Departure All imaging exams completed and their final reports reviewed: No Studies - Discharge Plan Condition: Stable Disposition: HOME Prescriptions: Cyclobenzaprine TAB* [Flexeril 10 MG TAB*] 10 mg PO TID PRN #15 tab PRN Reason: muscle spasm Patient Education Materials: Acute Low Back Pain (ED), Chronic Back Pain (DC), Lower Back Exercises (ED) Forms: *Work Release Referrals: Jenaro Angelo MD [Primary Care Provider] - If Needed - Billing Disposition and Condition Condition: STABLE Disposition: Home
== END 2019-11-17 19:10 | disposition home or self-care (01) ==
LOC: UCEAST 18:08
DX: M54.5 Low back pain (principal); E78.5 Hyperlipidemia, unspecified; I10 Essential (primary) hypertension; Z79.899 Other long term (current) drug therapy; Z88.6 Allergy status to analgesic agent
CPT/HCPCS: 96372; 99212; G0463; J1885

== ENCOUNTER 2019-11-18 19:00 | Emergency (ER) | payer OTHER ==
[2019-11-18 19:19] VITALS: BP 129/75
--- NOTE | 2019-11-18 20:40 | UC ---
Back Pain HPI - HPI Summary HPI Summary: 34-year-old male presents with complaints of pain in the left upper leg. Patient was seen at this facility last evening for low back pain and received a Toradol injection to the left ventral gluteal region. Patient states he has chronic back problems with herniated disks at L4 and L5. States back pain is much improved. He has been taking naproxen 500 mg twice a day and cyclobenzaprine every 8 hours. Pain is located in the back of his upper leg from the hip to the knee. Describes the pain as a constant sharp aching that is worse with any type of movement or pressure. States he occasionally has some tingling that shoots down the leg. Denies fever, chills, weakness, numbness, or tingling of the leg, difficulty ambulating, loss of bowel or bladder control. - History of Current Complaint Chief Complaint: UCLowerExtremity Stated Complaint: LEG PAIN Time Seen by Provider: 11/18/19 20:32 Hx Obtained From: Patient Pain Intensity: 10 - Allergies/Home Medications Allergies/Adverse Reactions: Allergies Allergy/AdvReac Type Severity Reaction Status Date / Time ibuprofen AdvReac See Comment Verified 11/18/19 19:19 Home Medications: Home Medications Lisinopril/HCTZ 10/12.5(NF) [Zestoretic 10/12.5(NF)] 1 tab PO DAILY 08/01/16 [ History Confirmed 11/18/19] Naproxen [EC-Naproxen] 1 tab PO BID 09/08/19 [History Confirmed 11/18/19] Simvastatin 1 tab PO DAILY 09/08/19 [History Confirmed 11/18/19] Cyclobenzaprine TAB* [Flexeril 10 MG TAB*] 10 mg PO TID PRN #15 tab 11/17/19 [Rx ] Hydrocodone/Acetaminophen [Hydrocodone-Acetamin 5-325 mg] 1 each PO Q6HR PRN # 12 tablet MDD 4 11/18/19 [Rx] predniSONE 50 mg TAB [Deltasone 50 mg TAB] 50 mg PO DAILY #4 tab 11/18/19 [Rx] PMH/Surg Hx/FS Hx/Imm Hx Endocrine History: Dyslipidemia Cardiovascular History: Hypertension Other History Of: Negative For: Anticoagulant Therapy - Surgical History Surgical History: Yes Surgery Procedure, Year, and Place: vasectomy 2018 - Family History Known Family History: Positive: Hypertension, Diabetes - Social History Occupation: Employed Full-time Lives: With Family Alcohol Use: None Substance Use Type: None Smoking Status (MU): Never Smoked Tobacco Review of Systems All Other Systems Reviewed And Are Negative: Yes Constitutional: Negative: Fever, Chills Skin: Negative: Rash Respiratory: Positive: Negative Cardiovascular: Positive: Negative Gastrointestinal: Positive: Negative Genitourinary: Positive: Negative Motor: Negative: Weakness Neurovascular: Negative: Decreased Sensation Musculoskeletal: Positive: Other: - See HPI. Negative: Calf Tenderness, Edema Neurological/Mental Status: Negative: Weakness, Paresthesia, Numbness Is Patient Immunocompromised?: No Physical Exam - Summary Physical Exam Summary: GENERAL APPEARANCE: Alert and cooperative obese adult male who appears to be in no acute distress. CARDIAC: Normal S1 and S2. No S3, S4 or murmurs. Rhythm is regular. There is no peripheral edema, cyanosis or pallor. Extremities are warm and well perfused. Capillary refill is less than 2 seconds. Peripheral pulses intact. LUNGS: Clear to auscultation without rales, rhonchi, wheezing or diminished breath sounds. ABDOMEN: Positive bowel sounds. Soft, nondistended, nontender. No guarding or rebound. No masses or hepatosplenomegally. MUSKULOSKELETAL: Normal muscular development. Limping gait. BACK: No midline spinal deformity or tenderness, no paraspinous tenderness, no decreased range of motion or muscular spasm. EXTREMITIES: ROM intact to the left hip. No joint erythema or tenderness. Mild soft tissue tenderness over the left sciatic nerve. No rash. Circulation and sensation intact. NEUROLOGICAL: CN II-XII intact. Strength and sensation symmetric and intact throughout. Reflexes 2+ throughout. Cerebellar testing normal. Triage Information Reviewed: Yes Vital Signs: Initial Vital Signs Temp 98.3 F 11/18/19 19:13 Pulse 78 11/18/19 19:13 Resp 16 11/18/19 19:13 BP 129/75 11/18/19 19:13 Pulse Ox 100 11/18/19 19:13 Vital Signs Reviewed: Yes Back Pain Course/Dx - Course Course Of Treatment: 34-year-old male presents with complaints of pain in the left upper leg. Patient was seen at this facility last evening for low back pain and received a Toradol injection to the left ventral gluteal region. Patient states he has chronic back problems with herniated disks at L4 and L5. States back pain is much improved. He has been taking naproxen 500 mg twice a day and cyclobenzaprine every 8 hours. Pain is located in the back of his upper leg from the hip to the knee. Describes the pain as a constant sharp aching that is worse with any type of movement or pressure. States he occasionally has some tingling that shoots down the leg. Denies fever, chills, weakness, numbness, or tingling of the leg, difficulty ambulating, loss of bowel or bladder control. - Differential Dx/Diagnosis Differential Diagnosis/HQI/PQRI: Arthritis, Herniated Disc, Strain Provider Diagnosis: Sciatica of left side Discharge ED - Sign-Out/Discharge Documenting (check all that apply): Patient Departure All imaging exams completed and their final reports reviewed: No Studies - Discharge Plan Condition: Stable Disposition: HOME Prescriptions: Hydrocodone/Acetaminophen [Hydrocodone-Acetamin 5-325 mg] 1 each PO Q6HR PRN # 12 tablet MDD 4 PRN Reason: Pain - Severe predniSONE 50 mg TAB [Deltasone 50 mg TAB] 50 mg PO DAILY #4 tab Patient Education Materials: Sciatica (ED) Forms: *Work Release Referrals: Jenaro Angelo MD [Primary Care Provider] - 3 Days Additional Instructions: I suspect that your pain is irritation of the sciatic nerve. I am unsure if this is related to the injection you received yesterday or if it related to your chronic back problems. Stop taking the naproxen. Start prednisone 50 mg daily for 5 days. We gave you the first dose in the clinic. Once you have completed the prednisone you may restart using the naproxen as as directed as needed for pain. Use hydrocodoneacetaminophen 5 mg\325 mg 1 tablet every 6 hours as needed for severe pain. This medication will cause drowsiness and do not take and drive or operate machinery. You may continue to use the cyclobenzaprine as directed. Continue using a heating pad to the affected area for 15-20 minutes at least 3- 4 times a day. Follow-up with your primary care provider in 3-5 days if symptoms are not improving. Seek immediate medical attention in the emergency room if you develop severe pain that is not managed with the pain medications, you are unable to walk or bear weight, he developed numbness, tingling, or weakness of the leg, lose control of her bowel or bladder, or have any worsening of symptoms. - Billing Disposition and Condition Condition: STABLE Disposition: Home
[2019-11-18] MEDS ORDERED: HYDROcodone/ACETAMIN 5-325 MG* 1 TAB PO ONE (20:45)
== END 2019-11-18 21:55 | disposition home or self-care (01) ==
LOC: UCEAST 19:00
DX: M54.32 Sciatica, left side (principal); I10 Essential (primary) hypertension; E78.5 Hyperlipidemia, unspecified; Z88.6 Allergy status to analgesic agent; Z79.899 Other long term (current) drug therapy
CPT/HCPCS: 99212; G0463; J7512